=== PATIENT | female | born 1970 | race Caucasian/White ===

== ENCOUNTER 2016-04-08 09:38 | Emergency (ER) | payer BC, OTHER ==
[2016-04-08] MEDS ORDERED: KETOROLAC 60 MG/2 ML VIAL IM STA (10:29)
--- NOTE | 2016-04-08 11:49 | US ---
EXAMINATION TYPE: US venous doppler duplex LE RT DATE OF EXAM: 04/08/2016 11:11 AM COMPARISON: NONE CLINICAL HISTORY: Pain. SIDE PERFORMED: Right Grayscale, color Doppler, spectral Doppler imaging performed of the deep veins of the right lower ext remity. The right common femoral, superficial femoral, popliteal veins all compress normally and show no abnormal luminal echoes. Venous waveforms are within normal limits. There is normal color flow. Right Leg: Negative for DVT IMPRESSION: No evident deep venous thrombosis at or above the right knee. Follow-up as indicated.
--- NOTE | 2016-04-08 11:57 | ED ---
General Adult HPI - General Chief complaint: Extremity Injury, Lower Stated complaint: Pain back of leg Time Seen by Provider: 04/08/16 10:00 Source: patient, RN notes reviewed Mode of arrival: ambulatory Limitations: no limitations - History of Present Illness Initial comments: This is a 45-year-old female who presents to the emergency department complaining of right sided back pain and pain radiating back of her right leg. Patient states it's worse with movement. Patient denies any swelling patient denies any redness patient denies any tenderness to the posterior aspect of her thigh or calf. Patient is wearing a orthopedic boot for a ankle strain she received in February. Patient states she has a family history of clots mother and grandmother and brother all have a clotting factor problem. Patient states she's never been worked up for. Patient denies being on any control. Patient denies any difficulty breathing or chest pain. Patient has no difficulty urinating or any urinary retention. Patient denies any numbness or weakness. Patient states her right lower back hurts when she lifts her leg or sit straight up in a chair when she lays flat she has no pain whatsoever. - Related Data Home Medications Medication Instructions Recorded Confirmed Ibuprofen [Motrin] 400 mg PO Q6HR PRN 04/08/16 04/08/16 Previous Rx's Medication Instructions Recorded Ibuprofen [Motrin] 600 mg PO Q6HR PRN #20 tab 04/08/16 Allergies Allergy/AdvReac Type Severity Reaction Status Date / Time sulfamethoxazole AdvReac Rash/Hives Verified 04/08/16 10:47 [From Bactrim] trimethoprim [From Bactrim] AdvReac Rash/Hives Verified 04/08/16 10:47 Review of Systems ROS Statement: Those systems with pertinent positive or pertinent negative responses have been documented in the HPI. ROS Other: All systems not noted in ROS Statement are negative. Past Medical History Past Medical History: No Reported History History of Any Multi-Drug Resistant Organisms: None Reported Additional Past Surgical History / Comment(s): right ankle fx Past Psychological History: No Psychological Hx Reported Smoking Status: Never smoker Past Alcohol Use History: None Reported Past Drug Use History: None Reported General Exam - General Exam Comments Initial Comments: GENERAL: Patient is well-developed and well-nourished. Patient is nontoxic and well- hydrated and is in mild distress. ENT: Neck is soft and supple. No significant lymphadenopathy is noted. Oropharynx is clear. Moist mucous membranes. Neck has full range of motion without eliciting any pain. EYES: The sclera were anicteric and conjunctiva were pink and moist. Extraocular movements were intact and pupils were equal round and reactive to light. Eyelids were unremarkable. PULMONARY: Unlabored respirations. Good breath sounds bilaterally. No audible rales rhonchi or wheezing was noted. CARDIOVASCULAR: There is a regular rate and rhythm without any murmurs gallops or rubs. ABDOMEN: Soft and nontender with normal bowel sounds. No palpable organomegaly was noted. There is no palpable pulsatile mass. SKIN: Skin is clear with no lesions or rashes and otherwise unremarkable. NEUROLOGIC: Patient is alert and oriented x3. Cranial nerves II through XII are grossly intact. Motor and sensory are also intact. Normal speech, volume and content. Symmetrical smile. MUSCULOSKELETAL: Normal extremities with adequate strength and full range of motion. No lower extremity swelling or edema. No calf tenderness. Straight leg is positive at the right leg at about 30 LYMPHATICS: No significant lymphadenopathy is noted PSYCHIATRIC: Normal psychiatric evaluation. Normal interpersonal interactions appears functionally intact in deals appropriately with others. Limitations: no limitations Course Vital Signs 04/08/16 09:58 Temperature 98.4 F Pulse Rate 109 H Respiratory 20 Rate Blood Pressure 160/75 O2 Sat by Pulse 100 Oximetry Medical Decision Making - Medical Decision Making Ultrasound of the right leg shows no DVT. Disposition Clinical Impression: Sciatica Disposition: HOME SELF-CARE Condition: Good Instructions: Sciatica (ED) Prescriptions: Ibuprofen [Motrin] 600 mg PO Q6HR PRN #20 tab PRN Reason: For pain Referrals: Nya Puentes DO [Primary Care Provider] - 1-2 days
[2016-04-08 12:10] VITALS: BP 131/81; PULSE 87; RESP 16; TEMP 98.2
== END 2016-04-08 12:22 | disposition home or self-care (01) ==
LOC: EC 09:38
DX: M54.41 Lumbago with sciatica, right side (principal); Z88.2 Allergy status to sulfonamides
CPT/HCPCS: 93971; 99283; 96372; J1885

== ENCOUNTER → 2017-03-11 | Outpatient (CLI) | payer OTHER ==
[2017-03-11 17:50] LABS: Basophils % (A) 0 %; Eosinophils # (A) 0.2 k/uL (0-0.7); Eosinophils % (A) 2 %; HCT 38.9 % (34.0-46.0); HGB 12.4 gm/dL (11.4-16.0); Lymphocytes # (A) 1.5 k/uL (1.0-4.8); Lymphocytes % (A) 17 %; MCH 26.1 pg (25.0-35.0); MCHC 31.8 g/dL (31.0-37.0); MCV 81.9 fL (80.0-100.0); Mean Platelet Volume 7.8; Monocytes # (A) 0.4 k/uL (0-1.0); Monocytes % (A) 4 %; Neutrophils # (A) 6.9 k/uL (1.3-7.7); Neutrophils % (A) 76 %; Platelet Count 380 k/uL (150-450); RBC 4.75 m/uL (3.80-5.40); RDW 14.6 % (11.5-15.5)
== END | disposition home or self-care (01) ==
LOC: LABPAT 17:02
PROVIDERS: ATTEND Obstetrics & Gynecology Obstetrics
DX: Z01.812 Encounter for preprocedural laboratory examination (principal); N94.6 Dysmenorrhea, unspecified; N92.0 Excessive and frequent menstruation with regular cycle
CPT/HCPCS: 85025

== ENCOUNTER 2017-03-31 09:09 | Day surgery (SDC) | payer OTHER ==
[2017-03-20 13:27] VITALS: BMI 30.1
[~2017-03-31 09:09] MED LIST: DEXAMETHASONE SOD PHOSPHATE 10 MG/ML 1 ML VIAL IV ONE; LACTATED RINGERS 1,000 ML IV SCH; MIDAZOLAM 2 MG/2 ML VIAL IV PRN; ONDANSETRON 4 MG/2 ML VIAL IVP ONE; Pre Op ABX Message 1 EACH MISC MISCELLANE ONE; SCOPOLAMINE 1.5MG/72HR PATCH TRANSDERM ONE
[2017-03-31] MEDS ORDERED: LIDOCAINE 1% 20 ML VIAL (10MG/ML) FOR IV START INTRADERMA ONE (10:47)
[2017-03-31] MEDS ORDERED: LIDOCAINE 1% INJ 10MG/ML (20 ML MDV) ONE (11:10)
[2017-03-31] MEDS ORDERED: KETOROLAC 30 MG/ML 1 ML VIAL ONE (11:10)
[2017-03-31] MEDS ORDERED: fentaNYL (PF) 50 MCG/ML 2 ML AMP ONE (11:10)
[2017-03-31] MEDS ORDERED: MIDAZOLAM 2 MG/2 ML VIAL ONE (11:10)
[2017-03-31] MEDS ORDERED: PROPOFOL 10 MG/ML 20 ML VIAL IV ONE (11:10)
--- NOTE | 2017-03-31 11:37 | P.OP ---
Date of Procedure: 03/31/17 Preoperative Diagnosis: Menorrhagia Postoperative Diagnosis: Same Procedure(s) Performed: Hysteroscopy, dilation and curettage, endometrial ablation, NovaSure Anesthesia: MAC Surgeon: Yoli Stevens Estimated Blood Loss (ml): 5 IV fluids (ml): 500 Urine output (ml): 10 Pathology: none sent (Endometrial curettings) Condition: stable Disposition: PACU Indications for Procedure: Heavy menstrual bleeding Operative Findings: Normal appearing endometrial cavity Description of Procedure: Patient was taken to the operating room where general anesthesia was obtained by the anesthesia department. She was then prepped and draped in the normal sterile fashion in the dorsal lithotomy position. A red rubber catheter is used to drain the bladder of clear yellow urine. The weighted speculum was placed in the posterior vaginal vault and the anterior lip of the cervix was visualized and grasped with a single-tooth tenaculum. The endocervical canal was then dilated to 18-[place]vian and hysteroscopy was performed with the above- noted findings. Afterwards the hysteroscope was removed without difficulty sharp curettage was then performed until gritty texture was noted all 4 quadrants of the endometrial cavity. The NovaSure device was then opened and set to the uterine measurements of the total length of 4 a width of 3.4 power of 75 for a total cycle time of 112. After the cavity assessment was passed this cycle was allowed to occur in the NovaSure was operated according to top dyeing machine tender's instructions. Afterwards the NovaSure device was removed without difficulty no bleeding was noted from the tenaculum sites. All instruments removed from the patient's vaginal vault counts are correct 2 patient tolerated procedure well and was taken to recovery room awake and in stable condition
[2017-03-31 11:48] VITALS: TEMP 97.8
[2017-03-31] MEDS: MORPHINE SULFATE 4 MG/ML SYRINGE IV PRN ×3 (12:18→12:35)
[2017-03-31] MEDS ORDERED: LACTATED RINGERS 1,000 ML IV ONE (12:36)
[2017-03-31 12:45] VITALS: RESP 18
[2017-03-31 13:05] VITALS: BP 145/80; PULSE 78
== END 2017-03-31 13:33 | disposition home or self-care (01) ==
LOC: OR 09:09
PROVIDERS: ATTEND Obstetrics & Gynecology Obstetrics
DX: N92.0 Excessive and frequent menstruation with regular cycle (principal); N94.6 Dysmenorrhea, unspecified; N39.3 Stress incontinence (female) (male); F17.210 Nicotine dependence, cigarettes, uncomplicated; Z98.51 Tubal ligation status; Z88.2 Allergy status to sulfonamides; Z83.3 Family history of diabetes mellitus; Z82.49 Family history of ischemic heart disease and other diseases of the circulatory system
CPT/HCPCS: 81025; 58563; J2250; J2270; J1100; J2405; J2001; J3010; J1885; J2704; 88305

== ENCOUNTER → 2018-07-01 | Outpatient (CLI) | payer OTHER ==
--- NOTE | 2018-07-06 13:32 | MM ---
Reason for exam: screening (asymptomatic). Last mammogram was performed 3 years and 8 months ago. Physical Findings: A clinical breast exam by your physician is recommended on an annual basis and results should be correlated with mammographic findings. MG Screening Mammo w CAD Bilateral CC and MLO view(s) were taken. Prior study comparison: November 03, 2014, bilateral MG diagnostic mammo w CAD [facility]. August 09, 2012, bilateral digital screening mammo w/CAD. There are scattered fibroglandular densities. No suspicious abnormality. No significant changes when compared with prior studies. ASSESSMENT: Negative, BI-RAD 1 RECOMMENDATION: Routine screening mammogram of both breasts in 1 year.
== END | disposition home or self-care (01) ==
LOC: RADMAMWWP 07:28
PROVIDERS: ATTEND Obstetrics & Gynecology Obstetrics
DX: Z12.31 Encounter for screening mammogram for malignant neoplasm of breast (principal)
CPT/HCPCS: 77067

== ENCOUNTER → 2019-09-27 | Outpatient (CLI) | payer OTHER ==
--- NOTE | 2019-09-28 11:56 | MM ---
Reason for exam: screening (asymptomatic). Last mammogram was performed 1 year and 3 months ago. Physical Findings: A clinical breast exam by your physician is recommended on an annual basis and results should be correlated with mammographic findings. MG Screening Mammo w CAD Bilateral CC and MLO view(s) were taken. Prior study comparison: July 01, 2018, bilateral MG screening mammo w CAD. November 03, 2014, bilateral MG diagnostic mammo w CAD CLAUDIA. There are scattered fibroglandular densities. No significant changes when compared with prior studies. ASSESSMENT: Benign, BI-RAD 2 RECOMMENDATION: Routine screening mammogram of both breasts in 1 year.
== END | disposition home or self-care (01) ==
LOC: RADMAMWWP 07:13
PROVIDERS: ATTEND Obstetrics & Gynecology Obstetrics
DX: Z12.31 Encounter for screening mammogram for malignant neoplasm of breast (principal)
CPT/HCPCS: 77067

== ENCOUNTER 2020-02-08 00:24 | Emergency (ER) | payer OTHER ==
[2020-02-08] MEDS ORDERED: SODIUM CHLORIDE 0.9% 1,000 ML IV STA ×2 (00:35→01:54)
--- NOTE | 2020-02-08 01:07 | ED ---
Dizziness HPI - General Chief Complaint: Dizziness Stated Complaint: SOB Time Seen by Provider: 02/08/20 00:35 Source: patient, RN notes reviewed, old records reviewed Mode of arrival: wheelchair Limitations: no limitations (Patient is anxious) - History of Present Illness Initial Comments: This is a 49-year-old female DF for evaluation patient procedures a right lower extremity earlier today varicose vein treatment and injections. Patient has some complaints of shortness of breath, swelling tingling of bilateral upper and lower extremities. Symptoms and feeling like she cannot breathe and feels like her heart is racing. Patient has no medical history takes otherwise no medications has a medication ALLERGY to Bactrim but describes it as just hives Complaint: dizziness, lightheadedness, other (Numbness and tingling of upper extremities) -: hour(s) Timing: gradual onset History of Same: No History of Trauma: No Severity: moderate Improves With: remaining still Worsens With: nothing Associated Symptoms: shortness of breath - Related Data Home Medications Medication Instructions Recorded Confirmed No Known Home Medications 03/20/17 03/31/17 Allergies Allergy/AdvReac Type Severity Reaction Status Date / Time sulfamethoxazole AdvReac Rash/Hives Verified 02/08/20 00:33 [From Bactrim] trimethoprim [From Bactrim] AdvReac Rash/Hives Verified 02/08/20 00:33 Review of Systems ROS Statement: Those systems with pertinent positive or pertinent negative responses have been documented in the HPI. ROS Other: All systems not noted in ROS Statement are negative. Past Medical History Past Medical History: No Reported History History of Any Multi-Drug Resistant Organisms: None Reported Additional Past Surgical History / Comment(s): right ankle fx, vein procedure Past Psychological History: No Psychological Hx Reported Smoking Status: Never smoker Past Alcohol Use History: None Reported Past Drug Use History: None Reported General Exam Limitations: no limitations General appearance: alert, in no apparent distress, anxious Head exam: Present: atraumatic, normocephalic, normal inspection Eye exam: Present: normal appearance, PERRL, EOMI. Absent: scleral icterus, conjunctival injection, periorbital swelling ENT exam: Present: normal exam, mucous membranes moist Neck exam: Present: normal inspection. Absent: tenderness, meningismus, lymphadenopathy Respiratory exam: Present: normal lung sounds bilaterally. Absent: respiratory distress, wheezes, rales, rhonchi, stridor Cardiovascular Exam: Present: normal rhythm, tachycardia, normal heart sounds. Absent: systolic murmur, diastolic murmur, rubs, gallop, clicks GI/Abdominal exam: Present: soft, normal bowel sounds. Absent: distended, tenderness, guarding, rebound, rigid Extremities exam: Present: normal inspection, full ROM, normal capillary refill. Absent: tenderness, pedal edema, joint swelling, calf tenderness Back exam: Present: normal inspection Neurological exam: Present: alert, oriented X3, CN II-XII intact Psychiatric exam: Present: normal affect, normal mood Skin exam: Present: warm, dry, intact, normal color. Absent: rash Course Vital Signs 02/08/20 02/08/20 00:26 01:35 Temperature 97.8 F Pulse Rate 135 H 105 H Respiratory 18 18 Rate Blood Pressure 164/85 157/80 O2 Sat by Pulse 99 100 Oximetry - Reevaluation(s) Reevaluation #1: 02/08/20 02:16 Medical record is reviewed Reevaluation #2: 02/08/20 02:16 Patient is improved and heart rate is return to Baseline Reevaluation #3: 02/08/20 02:16 Patient informed results and questions have been answered feels good for discharge symptoms have resolved Medical Decision Making - Medical Decision Making 49 female to the ER with nonspecific paresthesias severe anxiety type symptoms. Patient improved here in the ER tachycardia is resolved and patient can be discharged home us - Lab Data Result diagrams: 02/08/20 01:01 02/08/20 01:01 Lab Results 02/08/20 02/08/20 02/08/20 Range/Units 01:01 01:01 01:01 WBC 9.7 (3.8-10.6) k/uL RBC 4.49 (3.80-5.40) m/uL Hgb 12.3 (11.4-16.0) gm/dL Hct 38.6 (34.0-46.0) % MCV 86.1 (80.0-100.0) fL MCH 27.3 (25.0-35.0) pg MCHC 31.8 (31.0-37.0) g/dL RDW 13.8 (11.5-15.5) % Plt Count 332 (150-450) k/uL MPV 7.3 Neutrophils % 66 % Lymphocytes % 27 % Monocytes % 4 % Eosinophils % 2 % Basophils % 0 % Neutrophils # 6.4 (1.3-7.7) k/uL Lymphocytes # 2.6 (1.0-4.8) k/uL Monocytes # 0.4 (0-1.0) k/uL Eosinophils # 0.2 (0-0.7) k/uL Basophils # 0.0 (0-0.2) k/uL PT 9.3 (9.0-12.0) sec INR 0.9 (<1.2) APTT 26.0 (22.0-30.0) sec Sodium 137 (137-145) mmol/L Potassium 3.2 L (3.5-5.1) mmol/L Chloride 105 (98-107) mmol/L Carbon Dioxide 25 (22-30) mmol/L Anion Gap 7 mmol/L BUN 14 (7-17) mg/dL Creatinine 0.80 (0.52-1.04) mg/dL Est GFR (CKD-EPI)AfAm >90 (>60 ml/min/1.73 sqM) Est GFR (CKD-EPI)NonAf 87 (>60 ml/min/1.73 sqM) Glucose 171 H (74-99) mg/dL Plasma Lactic Acid Raad (0.7-2.0) mmol/L Calcium 8.7 (8.4-10.2) mg/dL Phosphorus 2.9 (2.5-4.5) mg/dL Magnesium 1.7 (1.6-2.3) mg/dL Total Bilirubin 0.4 (0.2-1.3) mg/dL AST 23 (14-36) U/L ALT 16 (4-34) U/L Alkaline Phosphatase 112 (38-126) U/L Creatine Kinase 53 (30-135) U/L Troponin I (0.000-0.034) ng/mL NT-Pro-B Natriuret Pep pg/mL Total Protein 6.4 (6.3-8.2) g/dL Albumin 3.7 (3.5-5.0) g/dL TSH 2.620 (0.465-4.680) mIU/L 02/08/20 02/08/20 02/08/20 Range/Units 01:01 01:01 01:01 WBC (3.8-10.6) k/uL RBC (3.80-5.40) m/uL Hgb (11.4-16.0) gm/dL Hct (34.0-46.0) % MCV (80.0-100.0) fL MCH (25.0-35.0) pg MCHC (31.0-37.0) g/dL RDW (11.5-15.5) % Plt Count (150-450) k/uL MPV Neutrophils % % Lymphocytes % % Monocytes % % Eosinophils % % Basophils % % Neutrophils # (1.3-7.7) k/uL Lymphocytes # (1.0-4.8) k/uL Monocytes # (0-1.0) k/uL Eosinophils # (0-0.7) k/uL Basophils # (0-0.2) k/uL PT (9.0-12.0) sec INR (<1.2) APTT (22.0-30.0) sec Sodium (137-145) mmol/L Potassium (3.5-5.1) mmol/L Chloride (98-107) mmol/L Carbon Dioxide (22-30) mmol/L Anion Gap mmol/L BUN (7-17) mg/dL Creatinine (0.52-1.04) mg/dL Est GFR (CKD-EPI)AfAm (>60 ml/min/1.73 sqM) Est GFR (CKD-EPI)NonAf (>60 ml/min/1.73 sqM) Glucose (74-99) mg/dL Plasma Lactic Acid Raad 2.1 H* (0.7-2.0) mmol/L Calcium (8.4-10.2) mg/dL Phosphorus (2.5-4.5) mg/dL Magnesium (1.6-2.3) mg/dL Total Bilirubin (0.2-1.3) mg/dL AST (14-36) U/L ALT (4-34) U/L Alkaline Phosphatase (38-126) U/L Creatine Kinase (30-135) U/L Troponin I <0.012 (0.000-0.034) ng/mL NT-Pro-B Natriuret Pep 73 pg/mL Total Protein (6.3-8.2) g/dL Albumin (3.5-5.0) g/dL TSH (0.465-4.680) mIU/L - Radiology Data Radiology results: report reviewed (Chest x-ray and x-ray of soft tissue neck is negative for acute disease), image reviewed Disposition Clinical Impression: Tachycardia, Paresthesia Disposition: HOME SELF-CARE Condition: Good Instructions (If sedation given, give patient instructions): Dizziness (ED), Paresthesia (ED) Is patient prescribed a controlled substance at d/c from ED?: No Referrals: Nya Puentes DO [Primary Care Provider] - 1-2 days
[2020-02-08 01:18] LABS: Basophils % (A) 0 %; Eosinophils # (A) 0.2 k/uL (0-0.7); Eosinophils % (A) 2 %; HCT 38.6 % (34.0-46.0); HGB 12.3 gm/dL (11.4-16.0); Lymphocytes # (A) 2.6 k/uL (1.0-4.8); Lymphocytes % (A) 27 %; MCH 27.3 pg (25.0-35.0); MCHC 31.8 g/dL (31.0-37.0); MCV 86.1 fL (80.0-100.0); Mean Platelet Volume 7.3; Monocytes # (A) 0.4 k/uL (0-1.0); Monocytes % (A) 4 %; Neutrophils # (A) 6.4 k/uL (1.3-7.7); Neutrophils % (A) 66 %; Platelet Count 332 k/uL (150-450); RBC 4.49 m/uL (3.80-5.40); RDW 13.8 % (11.5-15.5); WBC 9.7 k/uL (3.8-10.6)
[2020-02-08 01:25] LABS: ALT 16 U/L (4-34); AST 23 U/L (14-36); African American GFR (CKD) >90 (>60 ml/min/1.73 sqM); Albumin 3.7 g/dL (3.5-5.0); Alkaline Phosphatase 112 U/L (38-126); Anion Gap 7 mmol/L; Blood Urea Nitrogen 14 mg/dL (7-17); Calcium 8.7 mg/dL (8.4-10.2); Carbon Dioxide 25 mmol/L (22-30); Chloride 105 mmol/L (98-107); Creatine Kinase 53 U/L (30-135); Glucose 171 mg/dL (74-99); INR 0.9 (<1.2); Magnesium 1.7 mg/dL (1.6-2.3); Non-African American GFR(CKD) 87 (>60 ml/min/1.73 sqM); Phosphorus 2.9 mg/dL (2.5-4.5); Potassium 3.2 mmol/L (3.5-5.1); Prothrombin Time 9.3 sec (9.0-12.0); Sodium 137 mmol/L (137-145); Total Bilirubin 0.4 mg/dL (0.2-1.3); Total Protein 6.4 g/dL (6.3-8.2)
[2020-02-08] MEDS ORDERED: POTASSIUM BICARBONATE/CIT AC 20 MEQ TABLET.EFF PO STA (01:54)
--- NOTE | 2020-02-08 02:38 | XR ---
EXAM: XR Soft Tissue Neck CLINICAL HISTORY: ITS.REASON XR Reason: sob TECHNIQUE: Frontal and lateral views of the soft tissues of the neck. COMPARISON: No relevant prior studies available. FINDINGS: Airway: Unremarkable. No abnormal narrowing. Bones/joints: No acute fracture. No dislocation. Soft tissues: Unremarkable. No abnormal soft tissue prominence. Normal epiglottis. IMPRESSION: Normal neck x-rays.
--- NOTE | 2020-02-08 02:39 | XR ---
EXAM: XR Chest, 2 Views CLINICAL HISTORY: ITS.REASON XR Reason: sob TECHNIQUE: Frontal and lateral views of the chest. COMPARISON: No relevant prior studies available. FINDINGS: Lungs: No consolidation or mass. Pleural space: No effusion. Heart: No cardiomegaly. Bones/joints: No acute findings. IMPRESSION: No acute cardiopulmonary process.
--- NOTE | 2020-02-08 03:05 | ED ---
Medical Decision Making - Medical Decision Making 89 female DF for evaluation patient resents today for evaluation of anxiety elevated heart rate. Patient is CT here which is negative for acute disease patient does admit to using some marijuana prior in the day. Feeling better less anxious here in the [facility] anxiolysis and patient can be discharged home - Lab Data Result diagrams: 02/08/20 01:01 02/08/20 01:01 Lab Results 02/08/20 02/08/20 02/08/20 Range/Units 01:01 01:01 01:01 WBC 9.7 (3.8-10.6) k/uL RBC 4.49 (3.80-5.40) m/uL Hgb 12.3 (11.4-16.0) gm/dL Hct 38.6 (34.0-46.0) % MCV 86.1 (80.0-100.0) fL MCH 27.3 (25.0-35.0) pg MCHC 31.8 (31.0-37.0) g/dL RDW 13.8 (11.5-15.5) % Plt Count 332 (150-450) k/uL MPV 7.3 Neutrophils % 66 % Lymphocytes % 27 % Monocytes % 4 % Eosinophils % 2 % Basophils % 0 % Neutrophils # 6.4 (1.3-7.7) k/uL Lymphocytes # 2.6 (1.0-4.8) k/uL Monocytes # 0.4 (0-1.0) k/uL Eosinophils # 0.2 (0-0.7) k/uL Basophils # 0.0 (0-0.2) k/uL PT 9.3 (9.0-12.0) sec INR 0.9 (<1.2) APTT 26.0 (22.0-30.0) sec D-Dimer (<0.60) mg/L FEU Sodium 137 (137-145) mmol/L Potassium 3.2 L (3.5-5.1) mmol/L Chloride 105 (98-107) mmol/L Carbon Dioxide 25 (22-30) mmol/L Anion Gap 7 mmol/L BUN 14 (7-17) mg/dL Creatinine 0.80 (0.52-1.04) mg/dL Est GFR (CKD-EPI)AfAm >90 (>60 ml/min/1.73 sqM) Est GFR (CKD-EPI)NonAf 87 (>60 ml/min/1.73 sqM) Glucose 171 H (74-99) mg/dL Lactic Ac Sepsis Rflx Plasma Lactic Acid Raad (0.7-2.0) mmol/L Calcium 8.7 (8.4-10.2) mg/dL Phosphorus 2.9 (2.5-4.5) mg/dL Magnesium 1.7 (1.6-2.3) mg/dL Total Bilirubin 0.4 (0.2-1.3) mg/dL AST 23 (14-36) U/L ALT 16 (4-34) U/L Alkaline Phosphatase 112 (38-126) U/L Creatine Kinase 53 (30-135) U/L Troponin I (0.000-0.034) ng/mL NT-Pro-B Natriuret Pep pg/mL Total Protein 6.4 (6.3-8.2) g/dL Albumin 3.7 (3.5-5.0) g/dL TSH 2.620 (0.465-4.680) mIU/L 02/08/20 02/08/20 02/08/20 Range/Units 01:01 01:01 01:01 WBC (3.8-10.6) k/uL RBC (3.80-5.40) m/uL Hgb (11.4-16.0) gm/dL Hct (34.0-46.0) % MCV (80.0-100.0) fL MCH (25.0-35.0) pg MCHC (31.0-37.0) g/dL RDW (11.5-15.5) % Plt Count (150-450) k/uL MPV Neutrophils % % Lymphocytes % % Monocytes % % Eosinophils % % Basophils % % Neutrophils # (1.3-7.7) k/uL Lymphocytes # (1.0-4.8) k/uL Monocytes # (0-1.0) k/uL Eosinophils # (0-0.7) k/uL Basophils # (0-0.2) k/uL PT (9.0-12.0) sec INR (<1.2) APTT (22.0-30.0) sec D-Dimer (<0.60) mg/L FEU Sodium (137-145) mmol/L Potassium (3.5-5.1) mmol/L Chloride (98-107) mmol/L Carbon Dioxide (22-30) mmol/L Anion Gap mmol/L BUN (7-17) mg/dL Creatinine (0.52-1.04) mg/dL Est GFR (CKD-EPI)AfAm (>60 ml/min/1.73 sqM) Est GFR (CKD-EPI)NonAf (>60 ml/min/1.73 sqM) Glucose (74-99) mg/dL Lactic Ac Sepsis Rflx Plasma Lactic Acid Raad 2.1 H* (0.7-2.0) mmol/L Calcium (8.4-10.2) mg/dL Phosphorus (2.5-4.5) mg/dL Magnesium (1.6-2.3) mg/dL Total Bilirubin (0.2-1.3) mg/dL AST (14-36) U/L ALT (4-34) U/L Alkaline Phosphatase (38-126) U/L Creatine Kinase (30-135) U/L Troponin I <0.012 (0.000-0.034) ng/mL NT-Pro-B Natriuret Pep 73 pg/mL Total Protein (6.3-8.2) g/dL Albumin (3.5-5.0) g/dL TSH (0.465-4.680) mIU/L 02/08/20 02/08/20 Range/Units 01:01 01:29 WBC (3.8-10.6) k/uL RBC (3.80-5.40) m/uL Hgb (11.4-16.0) gm/dL Hct (34.0-46.0) % MCV (80.0-100.0) fL MCH (25.0-35.0) pg MCHC (31.0-37.0) g/dL RDW (11.5-15.5) % Plt Count (150-450) k/uL MPV Neutrophils % % Lymphocytes % % Monocytes % % Eosinophils % % Basophils % % Neutrophils # (1.3-7.7) k/uL Lymphocytes # (1.0-4.8) k/uL Monocytes # (0-1.0) k/uL Eosinophils # (0-0.7) k/uL Basophils # (0-0.2) k/uL PT (9.0-12.0) sec INR (<1.2) APTT (22.0-30.0) sec D-Dimer 0.46 (<0.60) mg/L FEU Sodium (137-145) mmol/L Potassium (3.5-5.1) mmol/L Chloride (98-107) mmol/L Carbon Dioxide (22-30) mmol/L Anion Gap mmol/L BUN (7-17) mg/dL Creatinine (0.52-1.04) mg/dL Est GFR (CKD-EPI)AfAm (>60 ml/min/1.73 sqM) Est GFR (CKD-EPI)NonAf (>60 ml/min/1.73 sqM) Glucose (74-99) mg/dL Lactic Ac Sepsis Rflx Y Plasma Lactic Acid Raad (0.7-2.0) mmol/L Calcium (8.4-10.2) mg/dL Phosphorus (2.5-4.5) mg/dL Magnesium (1.6-2.3) mg/dL Total Bilirubin (0.2-1.3) mg/dL AST (14-36) U/L ALT (4-34) U/L Alkaline Phosphatase (38-126) U/L Creatine Kinase (30-135) U/L Troponin I (0.000-0.034) ng/mL NT-Pro-B Natriuret Pep pg/mL Total Protein (6.3-8.2) g/dL Albumin (3.5-5.0) g/dL TSH (0.465-4.680) mIU/L - EKG Data -: EKG Interpreted by Me (EKG is sinus tachycardia 1:30 by mouth 136 QRS 60 QTC 435) - Radiology Data Radiology results: report reviewed (CTA is negative for acute disease), image reviewed Disposition Clinical Impression: Tachycardia, Paresthesia Disposition: HOME SELF-CARE Condition: Good Instructions (If sedation given, give patient instructions): Paresthesia (ED), Dizziness (ED) Is patient prescribed a controlled substance at d/c from ED?: No Referrals: Nya Puentes DO [Primary Care Provider] - 1-2 days
[2020-02-08 03:32] VITALS: RESP 18; TEMP 97.8
--- NOTE | 2020-02-08 03:39 | CT ---
EXAM: CT Angiography Chest With Intravenous Contrast CLINICAL HISTORY: ITS.REASON CT Reason: cp,tachycardia TECHNIQUE: Axial computed tomographic angiography images of the chest with intravenous contrast. CTDI is 14.47 mGy and DLP is 352.10 mGy-cm. This CT exam was performed using one or more of the following dose reduction techniques: automated exposure control, adjustment of the mA and/or kV according to patient size, and/or use of iterative reconstruction technique. MIP reconstructed images were created and reviewed. COMPARISON: No relevant prior studies available. FINDINGS: Pulmonary arteries: No filling defects. Aorta: No thoracic aortic aneurysm. Lungs: Partially calcified nodule measuring 14 mm in the left upper lobe. There are multiple tiny less than 4 mm nodule surrounding the left upper lobe calcified process. Pleural space: No pneumothorax. No effusion. Heart: No cardiomegaly. No pericardial effusion. Bones/joints: No acute fracture or dislocation. Soft tissues: 6 mm nodule in the left thyroid gland. Lymph nodes: No enlarged lymph nodes. IMPRESSION: 1. No pulmonary embolism. 2. 14 mm partially calcified nodule in the left upper lobe. There are multiple tiny less than 4 mm nodule surrounding this process. Likely sequela of granulomatous disease or infectious/inflammatory bronchiolitis.
[2020-02-08] MEDS ORDERED: LORazepam 2 MG/ML INJ IV STA (03:40)
[2020-02-08 04:29] VITALS: BP 126/77; PULSE 105
== END 2020-02-08 04:26 | disposition home or self-care (01) ==
LOC: EC 00:24
DX: R00.0 Tachycardia, unspecified (principal); R20.2 Paresthesia of skin; R42 Dizziness and giddiness; R06.02 Shortness of breath; Z88.1 Allergy status to other antibiotic agents; Z88.2 Allergy status to sulfonamides
CPT/HCPCS: 36415; 93005; 85379; 83880; 80053; 82550; 83605; 83735; 84100; 84443; 84484; 85025; 85610; 85730; 87635; 70360; 71046; 71275; 99285; 96374; 96361 ×2; J2060; Q9967

== ENCOUNTER 2020-06-17 22:20 | Emergency (ER) | payer OTHER ==
[2020-06-17 22:49] VITALS: TEMP 97.6
[2020-06-17] MEDS ORDERED: SODIUM CHLORIDE 0.9% 1,000 ML IV STA (23:10)
[2020-06-18 00:03] LABS: Basophils % (A) 0 %; Eosinophils # (A) 0.3 k/uL (0-0.7); Eosinophils % (A) 3 %; HCT 32.9 % (34.0-46.0); HGB 11.5 gm/dL (11.4-16.0); Lymphocytes # (A) 1.1 k/uL (1.0-4.8); Lymphocytes % (A) 11 %; MCH 29.2 pg (25.0-35.0); MCV 83.5 fL (80.0-100.0); Mean Platelet Volume 7.5; Monocytes # (A) 0.5 k/uL (0-1.0); Monocytes % (A) 5 %; Neutrophils # (A) 8.7 k/uL (1.3-7.7); Neutrophils % (A) 82 %; Platelet Count 308 k/uL (150-450); RBC 3.94 m/uL (3.80-5.40); RDW 13.9 % (11.5-15.5); WBC 10.7 k/uL (3.8-10.6)
--- NOTE | 2020-06-18 00:05 | CT ---
EXAMINATION TYPE: CT chest angio for PE DATE OF EXAM: 06/17/2020 COMPARISON: 02/08/2020 HISTORY: R/O PE Chest pain CT DLP: 283.40 mGycm Automated exposure control for dose reduction was used. CONTRAST: Performed with IV Contrast, patient injected with 70 mL of Isovue 370. There are 3-D post processed images. The mediastinum is normal. Thoracic aorta is intact. There is no aneurysm or dissection. There is nor mal contrast opacification of the pulmonary arteries. There are no filling defects. There is lobulate d partly calcified nodule in the left upper lobe. Unchanged. There is no pleural effusion. Heart size is normal. There is no pericardial effusion. There are a few small bronchial lymph nodes. Thoracic spine is intact. There is no compression fracture. Sternum is intact. There is 3 mm calcified granuloma in the upper spleen. IMPRESSION: No evidence of pulmonary embolism. Calcifying lobulated nodular density in the left upper lobe is consistent with old granulomatous dise ase and appears stable compared to old exam. No suspicious pulmonary mass.
[2020-06-18 00:16] LABS: ALT 22 U/L (4-34); AST 30 U/L (14-36); African American GFR (CKD) >90 (>60 ml/min/1.73 sqM); Albumin 3.8 g/dL (3.5-5.0); Alkaline Phosphatase 109 U/L (38-126); Anion Gap 8 mmol/L; Blood Urea Nitrogen 20 mg/dL (7-17); Calcium 9.5 mg/dL (8.4-10.2); Carbon Dioxide 22 mmol/L (22-30); Chloride 106 mmol/L (98-107); Glucose 116 mg/dL (74-99); Magnesium 1.7 mg/dL (1.6-2.3); Non-African American GFR(CKD) >90 (>60 ml/min/1.73 sqM); Potassium 3.8 mmol/L (3.5-5.1); Sodium 136 mmol/L (137-145); Total Bilirubin 0.4 mg/dL (0.2-1.3); Total Protein 6.3 g/dL (6.3-8.2)
[2020-06-18 00:30] LABS: INR 0.9 (<1.2); Partial Thromboplastin Time 23.6 sec (22.0-30.0); Prothrombin Time 10.1 sec (9.0-12.0)
--- NOTE | 2020-06-18 01:19 | ED ---
General Adult HPI - General Chief complaint: Arrhythmia/Palpitations Stated complaint: Chest Pain Time Seen by Provider: 06/17/20 23:00 Source: patient Mode of arrival: ambulatory Limitations: no limitations - History of Present Illness Initial comments: 49 year-old female patient presents to the emergency department for evaluation of racing heart and heart fluttering. States it started a couple of hours ago. States she did have symptoms like this in the past, did wear a heart monitor for two weeks, no official diagnosis. Patient states she was working out in the garden all day. States that she did touch some foxglove with her bare hands, she did have an open wound on her palm. She is concerned because this plant is poisonous. She also is currently being treated for superficial venous thrombosis with ibuprofen. Does reports some mild shortness of breath. Denies any nausea or vomiting. Denies chest pain or tightness. Denies dizziness or weakness. Patient denies any recent rash, fever, chills, cough, abdominal pain, diarrhea, constipation, back pain, numbness, tingling, hematuria, dysuria, urinary urgency, urinary frequency, headache, visual changes, or any other complaints. - Related Data Home Medications Medication Instructions Recorded Confirmed Ibuprofen [Motrin] 400 mg PO BID 06/17/20 06/17/20 Allergies Allergy/AdvReac Type Severity Reaction Status Date / Time sulfamethoxazole AdvReac Rash/Hives Verified 06/17/20 22:49 [From Bactrim] trimethoprim [From Bactrim] AdvReac Rash/Hives Verified 06/17/20 22:49 Review of Systems ROS Statement: Those systems with pertinent positive or pertinent negative responses have been documented in the HPI. ROS Other: All systems not noted in ROS Statement are negative. Past Medical History Past Medical History: No Reported History History of Any Multi-Drug Resistant Organisms: None Reported Past Surgical History: Orthopedic Surgery, Tonsillectomy, Tubal Ligation, Uterine Ablation Additional Past Surgical History / Comment(s): right ankle fx, vein procedure to rt leg Past Psychological History: No Psychological Hx Reported Smoking Status: Never smoker Past Alcohol Use History: None Reported Past Drug Use History: None Reported General Exam Limitations: no limitations General appearance: alert, in no apparent distress, other (This is a well-developed, well-nourished adult female patient in no acute distress. Vital signs upon presentation are temperature 97.6F, pulse 106, respirations 22, blood pressure 162/78, pulse ox 100% on room air.) Eye exam: Present: normal appearance, PERRL, EOMI. Absent: scleral icterus, conjunctival injection, periorbital swelling ENT exam: Present: normal exam, normal oropharynx, mucous membranes moist Respiratory exam: Present: normal lung sounds bilaterally. Absent: respiratory distress, wheezes, rales, rhonchi, stridor Cardiovascular Exam: Present: normal rhythm, tachycardia, normal heart sounds. Absent: systolic murmur, diastolic murmur, rubs, gallop, clicks GI/Abdominal exam: Present: soft, normal bowel sounds. Absent: distended, tenderness, guarding, rebound, rigid Neurological exam: Present: alert, oriented X3, CN II-XII intact Psychiatric exam: Present: normal affect, normal mood Skin exam: Present: warm, dry, intact, normal color. Absent: rash Course Vital Signs 06/17/20 06/18/20 06/18/20 22:45 00:42 01:42 Temperature 97.6 F Pulse Rate 106 H 105 H 99 Respiratory 22 16 18 Rate Blood Pressure 162/78 141/84 140/78 O2 Sat by Pulse 100 98 98 Oximetry EKG Findings - EKG Comments: EKG Findings:: EKG obtained at 00 52 shows sinus rhythm with a ventricular 98, CA interval 110, QRS duration 76, QT 372, QTc 474. No evidence of ST elevation or depression. Medical Decision Making - Medical Decision Making 49-year-old female patient presents to the emergency department today for evaluation of palpitations. Physical examination was unremarkable. She has some tachycardia, EKG revealed sinus tachycardia. Labs reviewed and are unremarkable. Patient concerned due to touching a nichols glove plant today while gardening, review of nichols glove poisoning shows patient's symptoms are not consistent with this condition and would generally need to have ingested the plant. CTA of the chest was obtained and showed no evidence for PE. She'll be discharged follow-up with her primary care physician for recheck in 1-2 days. She is urged to discuss possible referral to cardiology. Return parameters were discussed in detail. She verbalizes understanding and agrees with this plan. Case discussed with my attending Dr. Adhikari. - Lab Data Result diagrams: 06/17/20 23:26 06/17/20 23:26 Lab Results 06/17/20 06/17/20 06/17/20 Range/Units 23:26 23:26 23:26 WBC 10.7 H (3.8-10.6) k/uL RBC 3.94 (3.80-5.40) m/uL Hgb 11.5 (11.4-16.0) gm/dL Hct 32.9 L (34.0-46.0) % MCV 83.5 (80.0-100.0) fL MCH 29.2 (25.0-35.0) pg MCHC 35.0 (31.0-37.0) g/dL RDW 13.9 (11.5-15.5) % Plt Count 308 (150-450) k/uL MPV 7.5 Neutrophils % 82 % Lymphocytes % 11 % Monocytes % 5 % Eosinophils % 3 % Basophils % 0 % Neutrophils # 8.7 H (1.3-7.7) k/uL Lymphocytes # 1.1 (1.0-4.8) k/uL Monocytes # 0.5 (0-1.0) k/uL Eosinophils # 0.3 (0-0.7) k/uL Basophils # 0.0 (0-0.2) k/uL PT 10.1 (9.0-12.0) sec INR 0.9 (<1.2) APTT 23.6 (22.0-30.0) sec Sodium 136 L (137-145) mmol/L Potassium 3.8 (3.5-5.1) mmol/L Chloride 106 (98-107) mmol/L Carbon Dioxide 22 (22-30) mmol/L Anion Gap 8 mmol/L BUN 20 H (7-17) mg/dL Creatinine 0.65 (0.52-1.04) mg/dL Est GFR (CKD-EPI)AfAm >90 (>60 ml/min/1.73 sqM) Est GFR (CKD-EPI)NonAf >90 (>60 ml/min/1.73 sqM) Glucose 116 H (74-99) mg/dL Calcium 9.5 (8.4-10.2) mg/dL Magnesium 1.7 (1.6-2.3) mg/dL Total Bilirubin 0.4 (0.2-1.3) mg/dL AST 30 (14-36) U/L ALT 22 (4-34) U/L Alkaline Phosphatase 109 (38-126) U/L Troponin I (0.000-0.034) ng/mL Total Protein 6.3 (6.3-8.2) g/dL Albumin 3.8 (3.5-5.0) g/dL TSH 3.020 (0.465-4.680) mIU/L 06/17/20 Range/Units 23:26 WBC (3.8-10.6) k/uL RBC (3.80-5.40) m/uL Hgb (11.4-16.0) gm/dL Hct (34.0-46.0) % MCV (80.0-100.0) fL MCH (25.0-35.0) pg MCHC (31.0-37.0) g/dL RDW (11.5-15.5) % Plt Count (150-450) k/uL MPV Neutrophils % % Lymphocytes % % Monocytes % % Eosinophils % % Basophils % % Neutrophils # (1.3-7.7) k/uL Lymphocytes # (1.0-4.8) k/uL Monocytes # (0-1.0) k/uL Eosinophils # (0-0.7) k/uL Basophils # (0-0.2) k/uL PT (9.0-12.0) sec INR (<1.2) APTT (22.0-30.0) sec Sodium (137-145) mmol/L Potassium (3.5-5.1) mmol/L Chloride (98-107) mmol/L Carbon Dioxide (22-30) mmol/L Anion Gap mmol/L BUN (7-17) mg/dL Creatinine (0.52-1.04) mg/dL Est GFR (CKD-EPI)AfAm (>60 ml/min/1.73 sqM) Est GFR (CKD-EPI)NonAf (>60 ml/min/1.73 sqM) Glucose (74-99) mg/dL Calcium (8.4-10.2) mg/dL Magnesium (1.6-2.3) mg/dL Total Bilirubin (0.2-1.3) mg/dL AST (14-36) U/L ALT (4-34) U/L Alkaline Phosphatase (38-126) U/L Troponin I <0.012 (0.000-0.034) ng/mL Total Protein (6.3-8.2) g/dL Albumin (3.5-5.0) g/dL TSH (0.465-4.680) mIU/L - Radiology Data Radiology results: report reviewed, image reviewed Disposition Clinical Impression: Palpitations Disposition: HOME SELF-CARE Condition: Good Instructions (If sedation given, give patient instructions): Heart Palpitations (ED) Additional Instructions: Increase fluids. Follow-up with the primary care physician for recheck in 1-2 days. Return for any new, worsening, or concerning symptoms. Is patient prescribed a controlled substance at d/c from ED?: No Referrals: Nya Puentes DO [Primary Care Provider] - 1-2 days Time of Disposition: 01:19
[2020-06-18 01:43] VITALS: BP 140/78; PULSE 99; RESP 18
== END 2020-06-18 01:43 | disposition home or self-care (01) ==
LOC: EC 22:20
DX: R00.2 Palpitations (principal); Z79.1 Long term (current) use of non-steroidal anti-inflammatories (NSAID); Z88.1 Allergy status to other antibiotic agents; Z88.2 Allergy status to sulfonamides
CPT/HCPCS: 36415; 93005; 80053; 84443; 83735; 84484; 85025; 85610; 85730; 71275; 99285; Q9967

== ENCOUNTER → 2020-09-27 | Outpatient (CLI) | payer OTHER ==
--- NOTE | 2020-10-01 09:53 | MM ---
Reason for exam: screening (asymptomatic). Last mammogram was performed 1 year ago. Physical Findings: A clinical breast exam by your physician is recommended on an annual basis and results should be correlated with mammographic findings. MG Screening Mammo w CAD Bilateral CC and MLO view(s) were taken. Prior study comparison: September 27, 2019, bilateral MG screening mammo w CAD. July 01, 2018, bilateral MG screening mammo w CAD. There are scattered fibroglandular densities. No significant changes when compared with prior studies. ASSESSMENT: Benign, BI-RAD 2 RECOMMENDATION: Routine screening mammogram of both breasts in 1 year.
== END | disposition home or self-care (01) ==
LOC: RADMAMWWP 06:59
PROVIDERS: ATTEND Obstetrics & Gynecology Obstetrics
DX: Z12.31 Encounter for screening mammogram for malignant neoplasm of breast (principal)
CPT/HCPCS: 77067

== ENCOUNTER 2023-10-14 07:11 | Day surgery (SDC) | payer BC, OTHER ==
[2023-10-12 14:52] VITALS: BMI 29.2
[~2023-10-14 07:11] MED LIST changes: -DEXAMETHASONE SOD PHOSPHATE 10 MG/ML 1 ML VIAL IV ONE; -LACTATED RINGERS 1,000 ML IV SCH; +LIDOCAINE 1% (10MG/ML) FOR IV START INTRADERMA PRN; -MIDAZOLAM 2 MG/2 ML VIAL IV PRN; -ONDANSETRON 4 MG/2 ML VIAL IVP ONE; -Pre Op ABX Message 1 EACH MISC MISCELLANE ONE; -SCOPOLAMINE 1.5MG/72HR PATCH TRANSDERM ONE
[2023-10-14] MEDS: IV FLUID CONTINUATION 1,000 ML IV ONE (07:51)
[2023-10-14] MEDS: LACTATED RINGERS 1,000 ML IV SCH (07:52)
[2023-10-14 07:54] VITALS: TEMP 98.4
[2023-10-14] MEDS ORDERED: PROPOFOL 10 MG/ML 20 ML VIAL IV ONE (08:11)
[2023-10-14] MEDS ORDERED: LIDOCAINE 1% INJ 10MG/ML (20 ML MDV) ONE (08:11)
--- NOTE | 2023-10-14 08:29 | P.PCN ---
Date of Procedure: 10/14/23 Procedure(s) Performed: Brief history: Patient is a pleasant 33-year-old white female scheduled for an elective upper endoscopy as well as colonoscopy as a part of evaluation of GERD/epigastric pain and screening for colon cancer Procedure performed: Esophagogastroduodenoscopy with biopsy Colonoscopy Preoperative diagnosis: Chronic epigastric pain Screening for colon cancer Anesthesia: MAC Procedure: After informed consent was obtained from the patient was brought into the endoscopy unit and IV sedation was administered by anesthesia under continuous monitoring. Initially upper endoscopy was done. The Olympus GF 160 video endoscope was inserted inserted into the mouth and esophagus intubated without any difficulty and was gradually advanced into the stomach and duodenum and carefully examined. The bulb and second part of the duodenum appeared normal. The scope was then withdrawn into the stomach adequately insufflated with air and upon careful examination the antrum and body, cardia and fundus appeared normal. The scope was then withdrawn into the esophagus. Small sliding-type h iatal hernia noted. The GE junction was located at 40 cm to the incisors. It appeared regular with mild circumferential erythema consistent with LA grade A reflux esophagitis.. Rest of the esophagus appeared normal. Patient tolerated the procedure well. At this time the patient continued to remain sedation. Initial digital rectal examination was normal. Olympus CF 160 video colonoscope was then inserted into the rectum and gradually advanced to the cecum without any difficulty. Careful examination was performed as the scope was gradually being withdrawn. The prep was excellent. The cecum, ascending colon, transverse colon, descending colon, sigmoid colon and rectum appeared normal. Scattered sigmoid diverticulosis. Retroflexion was performed in the rectum and small internal hemorrhoids were noted. Patient tolerated the procedure well. Impression: 1. Upper endoscopy revealed mild active gastritis, small hiatal hernia and LA grade A reflux esophagitis 2. Colonoscopy revealed scattered sigmoid diverticulosis and small internal hemorrhoids Recommendations: Findings of this examination were discussed with the patient as well as her family. She was advised to follow the biopsy results. Use aalu-eos-lzayjtu H2 blockers as needed if she has any reflux symptoms. Recommend repeat screening colonoscopy in 10 years.
[2023-10-14 08:36] VITALS: RESP 16
[2023-10-14 08:53] VITALS: BP 115/80; PULSE 88
== END 2023-10-14 09:30 | disposition home or self-care (01) ==
LOC: ORWHC2ENDO 07:11
PROVIDERS: ATTEND Internal Medicine Gastroenterology
DX: Z12.11 Encounter for screening for malignant neoplasm of colon (principal); K29.50 Unspecified chronic gastritis without bleeding; K44.9 Diaphragmatic hernia without obstruction or gangrene; K57.30 Diverticulosis of large intestine without perforation or abscess without bleeding; K64.8 Other hemorrhoids; G89.29 Other chronic pain; K21.00 Gastro-esophageal reflux disease with esophagitis, without bleeding; Z88.2 Allergy status to sulfonamides; Z98.890 Other specified postprocedural states
CPT/HCPCS: 43239; 45378; 81025; 88305

== ENCOUNTER → 2023-10-29 | Outpatient (CLI) | payer BC ==
--- NOTE | 2023-10-29 14:23 | MM ---
Reason for Exam: Screening (asymptomatic). Last mammogram was performed 3 year(s) and 1 month(s) ago. Patient History: Menarche at age 13. First Full-Term at age 21. Last menstrual period: Risk Values: Ev 5 year model risk: 1.0%. NCI Lifetime model risk: 7.7%. Prior Study Comparison: 07/01/2018 Bilateral Screening Mammogram, [facility]. 09/27/2019 Bilateral Screening Mammogram, [facility]. 09/27/2020 Bilateral Screening Mammogram, [facility]. Tissue Density: The breasts are extremely dense, which lowers the sensitivity of mammography. Findings: Analyzed By CAD. There is no suspicious group of microcalcifications or new suspicious mass in either breast. Overall Assessment: Negative, BI-RAD 1 Management: Screening Mammogram of both breasts in 1 year. . Patient should continue monthly self-breast exams. A clinical breast exam by your physician is recommended on an annual basis. This exam should not preclude additional follow-up of suspicious palpable abnormalities. Note on Ev scores and lifetime risk: 1. A Ev score greater than 3% is considered moderate risk. If this is the case, consider specialist referral to assess eligibility for a risk reducing agent. 2. If overall lifetime risk for the development of breast cancer is 20% or higher, the patient may qualify for future screening with alternating mammogram and breast MRI. Electronically signed and approved by: Hernandez Sosa M.D. Radiologis
== END | disposition home or self-care (01) ==
LOC: RADMAMWWP 07:15
PROVIDERS: ATTEND Obstetrics & Gynecology Obstetrics
DX: Z12.31 Encounter for screening mammogram for malignant neoplasm of breast
CPT/HCPCS: 77067

== ENCOUNTER → 2024-01-05 | Outpatient (CLI) | payer BC ==
--- NOTE | 2024-01-05 15:48 | US ---
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 TECHNIQUE: Scanned right shoulder/posterior right shoulder. Grayscale and color Doppler imaging. FINDINGS: Isoechoic area seen right posterior shoulder at patient's area of concern = 5.8 x 3.6 x 1 .3 cm. No lymph nodes identified. IMPRESSION: Isoechoic lesion possibly representing fat-containing lesions as a lipoma. [facility], , 01/05/2024 3:46 PM
== END | disposition home or self-care (01) ==
LOC: RADUSWWP 12:48
PROVIDERS: ATTEND Family Medicine
DX: D17.39 Benign lipomatous neoplasm of skin and subcutaneous tissue of other sites (principal)

== ENCOUNTER 2024-04-08 06:11 | Day surgery (SDC) | payer BC ==
[~2024-04-08 06:11] MED LIST changes: +LACTATED RINGERS 1,000 ML IV SCH; -LIDOCAINE 1% (10MG/ML) FOR IV START INTRADERMA PRN; +Pre Op ABX Message 1 EACH MISC MISCELLANE ONE
--- NOTE | 2024-04-08 06:25 | P.GSHP ---
History of Present Illness H&P Date: 04/08/24 CHIEF COMPLAINT: Right arm/shoulder HISTORY OF PRESENT ILLNESS: The patient is a 53 year-old female presents with mass along with right shoulder/arm growing over 1 year, and discomfort. Patient presents for excision. PAST MEDICAL HISTORY: Please see list. PAST SURGICAL HISTORY: Please see list. MEDICATIONS: Please see list. ALLERGIES: Please see list. SOCIAL HISTORY: No illicit drug use FAMILY HISTORY: No reports of Crohn disease or ulcerative colitis. REVIEW OF ORGAN SYSTEMS: CONSTITUTIONAL: No reports of fevers or chills. GI: Denies any blood in stools or constipation. PHYSICAL EXAM: VITAL SIGNS: Stable Musculoskeletal: No clubbing cyanosis GENERAL: Well developed and in no acute distress. Pleasant. HEENT: No sclera icterus. Extraocular movements grossly intact. Moist buccal mucosa. Head is atraumatic, normocephalic. Hears conversational speech. No nasal drainage. NECK: Supple without lymphadenopathy. No JV distention. CHEST: Non-labored respirations and equal bilateral excursions. CARDIOVASCULAR: Regular rate and rhythm. Palpable 2+ radial pulses. ABDOMEN: Soft. Non-tender. Nondistended. NEUROLOGIC: No focal or lateralizing signs. PSYCH: Appropriate affect. Alert and oriented to person, place and time. SKIN: Right arm/shoulder mass, 5 cm ASSESSMENT: 1. Right arm/shoulder mass, 5-cm PLAN: 1. Will proceed of excision of right arm/shoulder. Benefits and risks described. 2. Antibiotic prophylaxis. Past Medical History Past Medical History: Deep Vein Thrombosis (DVT), GERD/Reflux Additional Past Medical History / Comment(s): TAILBONE PAIN improved, HX OF CONSTIPATION. blood clot in rt leg post covid 04/2020 (in leg that had vein stripping, it did not travel). ( Found @ [place] [facility] per [facility]) stress test in 04/2023 neg ( due to Higher BP and heart racing at the time) pt told sx were stress induced. tested for Factor V- negative. lump -pt describes location to rt side on her upper back where her bra strap would be. Pt wears compression stockings for edema and circulation. History of Any Multi-Drug Resistant Organisms: None Reported Past Surgical History: Orthopedic Surgery, Tonsillectomy, Tubal Ligation, Uterine Ablation Additional Past Surgical History / Comment(s): right ankle fx, vein strippting to rt leg. egd/ colonoscopy. Past Anesthesia/Blood Transfusion Reactions: No Reported Reaction Smoking Status: Never smoker - Past Family History Mother Family Medical History: Pulmonary Embolus Sister(s) Family Medical History: Pulmonary Embolus Brother(s) Family Medical History: Pulmonary Embolus Medications and Allergies Home Medications Medication Instructions Recorded Confirmed Type Aspirin EC [Ecotrin Low Dose] 81 mg PO DAILY 10/12/23 04/06/24 History Allergies Allergy/AdvReac Type Severity Reaction Status Date / Time sulfamethoxazole Allergy Rash/Hives Verified 04/06/24 11:06 [From Bactrim] trimethoprim [From Bactrim] Allergy Rash/Hives Verified 04/06/24 11:06 vitamin b AdvReac Rapid Uncoded 04/06/24 11:06 Heart Rate
[2024-04-08] MEDS: IV FLUID CONTINUATION 1,000 ML IV ONE (06:37)
[2024-04-08 06:50] VITALS: RESP 16
[2024-04-08] MEDS ORDERED: MIDAZOLAM 2 MG/2 ML VIAL IV PRN (07:00)
[2024-04-08] MEDS ORDERED: HYDROmorphone 0.5 MG/0.5 ML SYRINGE IVP PRN (07:00)
[2024-04-08 07:09] LABS: Basophils % (A) 0 %; Eosinophils # (A) 0.2 k/uL (0-0.7); Eosinophils % (A) 3 %; HCT 35.8 % (34.0-46.0); HGB 11.8 gm/dL (11.4-16.0); Lymphocytes # (A) 1.8 k/uL (1.0-4.8); Lymphocytes % (A) 22 %; MCH 27.7 pg (25.0-35.0); MCHC 32.9 g/dL (31.0-37.0); MCV 84.2 fL (80.0-100.0); Mean Platelet Volume 7.6; Monocytes # (A) 0.3 k/uL (0-1.0); Monocytes % (A) 4 %; Neutrophils # (A) 5.7 k/uL (1.3-7.7); Neutrophils % (A) 70 %; Platelet Count 301 k/uL (150-450); RBC 4.25 m/uL (3.80-5.40); RDW 13.2 % (11.5-15.5); WBC 8.1 k/uL (3.8-10.6)
[2024-04-08] MEDS: ACETAMINOPHEN TAB 500 MG TAB PO PRN (07:12)
[2024-04-08] MEDS: FAMOTIDINE 20 MG/2 ML VIAL IV STA (07:13)
[2024-04-08] MEDS: DEXAMETHASONE SOD PHOSPHATE 4 MG/ML 1 ML VIAL IVP STA (07:13)
[2024-04-08] MEDS: ONDANSETRON 4 MG/2 ML VIAL IVP PRN (07:13)
[2024-04-08] MEDS: HEPARIN SODIUM,PORCINE 5,000 UNIT/ML 1 ML VIAL SQ PRN (07:14)
[2024-04-08] MEDS ORDERED: LIDOCAINE 1% INJ 10MG/ML (20 ML MDV) ONE (07:30)
[2024-04-08] MEDS ORDERED: MIDAZOLAM 2 MG/2 ML VIAL ONE (07:30)
[2024-04-08] MEDS ORDERED: PROPOFOL 10 MG/ML 20 ML VIAL IV ONE (07:30)
[2024-04-08] MEDS ORDERED: SUCCINYLCHOLINE CHLORIDE 200 MG/10 ML VIAL IV ONE (07:30)
[2024-04-08] MEDS ORDERED: PHENYLEPHRINE-0.9% NACL SYG 1,000 MCG/10 ML SYRINGE ONE (07:30)
[2024-04-08] MEDS ORDERED: fentaNYL (PF) 50 MCG/ML 2 ML AMP ONE (07:30)
[2024-04-08 07:33] LABS: ALT 16 U/L (4-34); African American GFR (CKD) >90 (>60 ml/min/1.73 sqM); Anion Gap 11 mmol/L; Blood Urea Nitrogen 18 mg/dL (7-17); Calcium 8.9 mg/dL (8.4-10.2); Carbon Dioxide 24 mmol/L (22-30); Chloride 105 mmol/L (98-107); Glucose 111 mg/dL (74-99); Non-African American GFR(CKD) >90 (>60 ml/min/1.73 sqM); Sodium 140 mmol/L (137-145); Total Bilirubin 0.9 mg/dL (0.2-1.3)
[2024-04-08 07:37] LABS: Potassium 4.6 mmol/L (3.5-5.1)
[2024-04-08 07:38] LABS: AST 28 U/L (14-36); Alkaline Phosphatase 111 U/L (38-126); Total Protein 6.8 g/dL (6.3-8.2)
[2024-04-08] MEDS: LIDOCAINE 1%-EPI 1:100,000 20 ML VIAL SQ ONE (07:59)
[2024-04-08] MEDS: LACTATED RINGERS 1,000 ML IV ONE (08:19)
--- NOTE | 2024-04-08 08:39 | P.OP ---
Date of Procedure: 04/08/24 Description of Procedure: SURGEON: KIM HITCHCOCK MD PIECER: None. PREOPERATIVE DIAGNOSES: 1. Right posterior shoulder mass over 5 cm 2. Obesity due to calories, BMI 30.0 3. Hyperglycemia POSTOPERATIVE DIAGNOSES: 1. Right posterior shoulder mass over 5-cm 2. Obesity due to calories, BMI 30.0 3. Hyperglycemia PROCEDURES PERFORMED: 1. Excision of deep subcutaneous posterior right shoulder mass, 7 x 5 cm 2. Intermediate closure right posterior shoulder incision, 6-cm Anesthesia: GETA, local Estimated Blood Loss (ml): 10 Pathology: other (shoulder mass) Condition: stable Disposition: same day COMPLICATIONS: None. FINDINGS: 1. Complex interdigitating multilobulated lipoma right posterior shoulder deep subcutaneous tissue, 7 x 5 cm INDICATIONS: The patient is a 53-year-old female who presents with symptomatic right posterior shoulder tumor. Benefits and risks of surgical intervention were described including bleeding, infection. Informed consent was obtained. DESCRIPTION OR PROCEDURE: In the preoperative area, the area of concern was marked with indelible marker. Patient was brought into the operating room. After general induction, he was positioned in supine position with the right shoulder bump. The shoulder was prepped and draped in a standard sterile fashion with ChloraPrep. Timeout protocol was confirmed with the surgical team regarding the patient's name, procedure to be performed including preoperative medications. DVT prophylaxis was confirmed with SCDs. A field block was placed of the right shoulder. A posterior transverse 6-cm incision made over the prominence of the mass using #15 blade. Electro-Bovie cautery including blunt dissection was used to circumferential dissect an interdigitating multilobulated lipoma that extended into the deep subcutaneous tissue. The tumor was measured of 6 x 5 cm. Hemostasis was excellent. 0 Vicryl was placed for the deep subcutaneous tissue followed by 3-0 Monocryl for the dermis in a running subcuticular fashion. The skin was cleansed and Dermabond tape with liquid was applied. The incision was covered with Optifoam dressing. Local anesthetic was placed. At the end of the procedure, needle, sponge, and instrument count was verified correct by certified surgical technologist. Operative findings including digital imaging was shared with the patient's family. Plan - Discharge Summary Discharge Rx Participant: No New Discharge Prescriptions: New Ibuprofen [Motrin] 600 mg PO Q8HR PRN #30 tab PRN Reason: Pain Acetaminophen Tab [Tylenol Tab] 1,000 mg PO Q6HR PRN #30 tablet PRN Reason: Pain Continue Aspirin EC [Ecotrin Low Dose] 81 mg PO DAILY Discharge Medication List Aspirin EC [Ecotrin Low Dose] 81 mg PO DAILY 10/12/23 [History] Acetaminophen Tab [Tylenol Tab] 1,000 mg PO Q6HR PRN #30 tablet 04/08/24 [Rx] Ibuprofen [Motrin] 600 mg PO Q8HR PRN #30 tab 04/08/24 [Rx] Follow up Appointment(s)/Referral(s): Kim Hitchcock MD [STAFF PHYSICIAN] - 04/12/24 4:30 pm Patient Instructions/Handouts: Lipoma Removal (DC) Activity/Diet/Wound Care/Special Instructions: DO NOT REMOVE DRESSING. No lifting over 10 pounds in 2 weeks until April 22June shower BUT KEEP DRESSING DRY No bath tub soaks for two weeks until April 22 Diet as tolerated. Use Tylenol scheduled for the next 24-48 hours for best pain relief. Use ice along incisions for today to prevent swelling. Discharge Disposition: HOME SELF-CARE
[2024-04-08 08:55] VITALS: TEMP 97.5
[2024-04-08 09:52] VITALS: BP 117/77; PULSE 72
== END 2024-04-08 10:23 | disposition home or self-care (01) ==
LOC: OR 06:11
PROVIDERS: ATTEND Surgery Plastic and Reconstructive Surgery
DX: D17.21 Benign lipomatous neoplasm of skin and subcutaneous tissue of right arm (principal); E66.9 Obesity, unspecified; K21.9 Gastro-esophageal reflux disease without esophagitis; R73.9 Hyperglycemia, unspecified; Z68.30 Body mass index [BMI] 30.0-30.9, adult; Z79.82 Long term (current) use of aspirin; Z86.16 Personal history of COVID-19; Z86.718 Personal history of other venous thrombosis and embolism; Z88.1 Allergy status to other antibiotic agents; Z88.2 Allergy status to sulfonamides; Z98.51 Tubal ligation status; Z79.899 Other long term (current) drug therapy
CPT/HCPCS: 81025; 88304; 80053; 85025; 23071; J2250; J0330; J1644; J1100; J0690; J2405; J2003; J3010; J3490; J2704; J2371